=== PATIENT | female | born 1985 | race African-American/Black ===

== ENCOUNTER 2022-10-24 00:16 | Emergency (ER) | payer OTHER ==
[2022-10-24 00:30] VITALS: BP 137/70; PULSE 85; RESP 17; TEMP 97.6; BMI 29.2
== END 2022-10-24 01:59 | disposition home or self-care (01) ==
LOC: JER 00:16
DX: N93.9 Abnormal uterine and vaginal bleeding, unspecified (principal)
CPT/HCPCS: 76817-TC; 84703; 99284-25

== ENCOUNTER 2022-10-26 12:51 | Emergency (ER) | payer OTHER ==
[2022-10-26 13:09] VITALS: BP 134/96; PULSE 84; RESP 18; TEMP 98.5; BMI 28.5
[2022-10-26] MEDS ORDERED: TETRACAINE 0.5% HCL 0.6ML DROPPER.BOTTLE OD ONE (13:37)
[2022-10-26] MEDS ORDERED: TETRACAINE 0.5% OPHTH SOLN 2 ML BOTTLE ONE ×2 (13:42→14:29)
[2022-10-26] MEDS ORDERED: FLUORESCEIN NA 1 EA STRIP ONE ×2 (13:43→14:29)
[2022-10-26] MEDS ORDERED: ERYTHROMYCIN 0.5% OPHTHALMIC OINTMENT 3.5 GM TUBE OU STA (13:57)
[2022-10-26] MEDS ORDERED: ERYTHROMYCIN 0.5% OPHTHALMIC OINTMENT 3.5 GM TUBE ONE (14:29)
== END 2022-10-26 15:20 | disposition home or self-care (01) ==
LOC: JER 12:51 → JERFT 12:51
DX: H57.11 Ocular pain, right eye (principal); S05.01XA Injury of conjunctiva and corneal abrasion without foreign body, right eye, initial encounter; X58.XXXA Exposure to other specified factors, initial encounter
CPT/HCPCS: 99283-25